=== PATIENT | female | born 1995 | race American Indian/Alaskan Native ===

== ENCOUNTER 2018-05-11 21:42 | Emergency (ER) | payer MEDICAID, OTHER ==
[2018-05-11 23:35] VITALS: BP 118/69
[2018-05-12 00:55] LABS: Basophils % (Auto) 0.4 % (0.0-1.8); Eosinophils % (Auto) 0.3 % (0.0-4.3); Hematocrit 35.9 % (30.3-42.9); Hemoglobin 12.1 gm/dl (10.1-14.3); Lymphocytes # (Auto) 1.2 K/mm3 (1.2-5.4); Lymphocytes % (Auto) 16.9 % (13.4-35.0); Mean Corpuscular HGB Conc 34 % (30-34); Mean Corpuscular Hemoglobin 32 pg (28-32); Mean Corpuscular Volume 96 fl (79-97); Monocytes # (Auto) 0.6 K/mm3 (0.0-0.8); Platelet Count 208 K/mm3 (140-440); Red Blood Count 3.75 M/mm3 (3.65-5.03); Red Cell Distribution Width 12.6 % (13.2-15.2)
[2018-05-12 01:08] LABS: BUN/Creatinine Ratio 30; Blood Urea Nitrogen 12 mg/dL (7-17); Calcium 9.2 mg/dL (8.4-10.2); Hemolysis Index 6
[2018-05-12 01:46] LABS: Bilirubin,Urine NEG (Negative); Blood,Urine NEG (Negative); Color,Urine Yellow (Yellow); Hyaline Casts,Urine 15 /LPF; Mucus,Urine 1+ /HPF
--- NOTE | 2018-05-12 02:06 | Ultrasound Report ---
FINAL REPORT PROCEDURE: US OB < = 14 WEEKS FETUS TECHNIQUE: Real-time transabdominal sonography of the uterus, placenta, amniotic fluid, adnexa, and fetus was performed with image documentation. Measurements were obtained to determine age/size. M-mode Doppler was used to document heartbeat. CPT 73151 HISTORY: Abdominal pain. COMPARISON: No prior studies are available for comparison. FINDINGS: LMP: 02/19/2018. Clinical age: 11 weeks 5 days. EDC: 11/26/2018. CRL: 56.2 mm, which corresponds to a gestational age of: 12 weeks, 1 day. Yolk Sac: Normal. Embryonic Cardiac Activity: 144 beats per minute. Gestational Sac: Normal. Posterior placenta without previa. Amniotic fluid: Normal. Cervix: Normal. Uterus: 11.4 x 8.8 x 9.5 cm Right Ovary: 6.7 x 6.3 x 5.5 cm. 5.3 cm hypoechoic area. Normal flow. Left Ovary: 2.3 x 1.7 x 1.6 cm. Normal flow. Estimated delivery date: 11/23/2018. Uterus and adnexa: Normal. IMPRESSION: Single live intrauterine gestation at approximately 12 weeks 1 day. EDC by US 11/23/2018. Hypoechoic right ovarian lesion likely cyst.
== END 2018-05-11 23:30 | disposition left against medical advice (07) ==
LOC: ED 21:42
DX: R10.30 Lower abdominal pain, unspecified (principal); Z53.21 Procedure and treatment not carried out due to patient leaving prior to being seen by health care provider
CPT/HCPCS: 36415; 76801; 80048; 81001; 84702; 85025

== ENCOUNTER 2018-08-24 14:55 | Outpatient (CLI) | payer MEDICAID ==
[2018-08-24] MEDS ORDERED: LACTATED RINGERS 500 ML IV ONE (15:44)
[2018-08-24] MEDS ORDERED: TYLENOL PO ONE (17:52)
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
[2018-08-24 20:12] VITALS: BP 117/56
== END 2018-08-24 20:31 | disposition home or self-care (01) ==
LOC: TRG 14:55 → LD 16:09 → TRG 20:31
PROVIDERS: ATTEND Obstetrics & Gynecology
DX: O47.02 False labor before 37 completed weeks of gestation, second trimester (principal); Z3A.26 26 weeks gestation of pregnancy
CPT/HCPCS: 59025; 76815; 96360; J7120

== ENCOUNTER 2018-11-15 12:32 | Outpatient (CLI) | payer MEDICAID ==
[2018-11-15] MEDS ORDERED: LACTATED RINGERS 1,000 ML IV SCH (13:00)
[2018-11-15 13:32] LABS: Hematocrit 31.6 % (30.3-42.9); Hemoglobin 10.2 gm/dl (10.1-14.3); Mean Corpuscular HGB Conc 32 % (30-34); Mean Corpuscular Hemoglobin 28 pg (28-32); Mean Corpuscular Volume 87 fl (79-97); Platelet Count 170 K/mm3 (140-440); Red Blood Count 3.63 M/mm3 (3.65-5.03); Red Cell Distribution Width 15.3 % (13.2-15.2)
[2018-11-15 13:52] LABS: Alanine Aminotransferase 8 units/L (7-56); Uric Acid 3.7 mg/dL (3.5-7.6)
[2018-11-15 14:36] VITALS: BP 122/67
[2018-11-15 15:52] LABS: Bacteria,Urine 2+ /HPF (Negative); Bilirubin,Urine NEG (Negative); Blood,Urine LG (Negative); Color,Urine Yellow (Yellow); Protein,Urine <15 mg/dL mg/dL (Negative)
--- NOTE | 2018-11-16 07:58 | Ultrasound Report ---
ULTRASOUND BIOPHYSICAL PROFILE: History: well being Technique: Transabdominal ultrasound with Doppler interrogation. 2 - breathing movements 2 - movements 2 - posture and tone 2 - Qualitative amniotic fluid volume 8 - TOTAL SCORE OF POSSIBLE 8 Heart Rate (bpm) 133
--- NOTE | 2018-11-16 08:01 | Ultrasound Report ---
OB ULTRASOUND History well being. Technique: Transabdominal ultrasound with Doppler interrogation. Gestation: Single Position: Cephalic Amniotic Fluid: Normal RENE = 7.5 cm Heart Rate: 154 BPM BPD: 8.6 cm = 35 w 4 d HC: 31.8 cm = 35 w 6 d AC: 33.1 cm = 37 w 0 d FL: 7.5 cm = 38 w 3 d HC/AC Ratio: 0.96 Cephalic Index: 89.5 Estimated Weight: 3099 grams LMP: 02/19/18 Clinical age = 38 w 3 d EDC: 11/26/18 US Gest. Age = 36 w 5 d EDC: 12/08/18 IMPRESSION: Viable, single intrauterine as described.
== END 2018-11-15 15:35 | disposition home or self-care (01) ==
LOC: TRG 12:32
PROVIDERS: ATTEND Obstetrics & Gynecology
DX: O47.1 False labor at or after 37 completed weeks of gestation (principal); Z3A.38 38 weeks gestation of pregnancy
CPT/HCPCS: 36415; 59025; 76816; 76819; 81001; 82565; 83615; 84450; 84460; 84550; 85027; 86850; 86900; 86901; J7120

== ENCOUNTER 2018-11-15 20:55 | Outpatient (CLI) | payer MEDICAID ==
[2018-11-15 21:42] LABS: Bacteria,Urine 1+ /HPF (Negative); Bilirubin,Urine NEG (Negative); Blood,Urine MOD (Negative); Color,Urine Straw (Yellow); Protein,Urine <15 mg/dL mg/dL (Negative)
[2018-11-15 23:10] VITALS: BP 137/70
[2018-11-15] MEDS ORDERED: VISTARIL PO ONE (23:34)
== END 2018-11-15 23:56 | disposition home or self-care (01) ==
LOC: TRG 20:55
PROVIDERS: ATTEND Obstetrics & Gynecology
DX: O47.1 False labor at or after 37 completed weeks of gestation (principal); Z3A.38 38 weeks gestation of pregnancy
CPT/HCPCS: 59025; 81001; Q0177

== ENCOUNTER 2018-11-16 06:13 | Inpatient (IN) | payer MEDICAID ==
[2018-11-16] MEDS ORDERED: BRETHINE SUB-Q PRN (06:49)
[2018-11-16] MEDS ORDERED: SUBLIMAZE IV PRN (06:49)
[2018-11-16] MEDS ORDERED: XYLOCAINE 2% INFILTRATI ONE (06:49)
--- NOTE | 2018-11-16 06:59 | History and Physical Report ---
History of Present Illness Date of examination: 11/16/18 (labor) History of present illness: EDC Confirmation: 11/26/2018 Gestational Age: 7 1/7 weeks Past History : 2 Term Births: 0 Premature Births: 0 Living Children: 0 Para: 0 Mult. Births: 0 Prev : 0 Aborta: 1 Elect. Ab: 0 Spont. Ab: 1 # 1 Delivery type: SAB Past Medical History: L Ovarian cyst - 8cm Past Surgical History: negative Past Medical History Anesthesia Complications: negative Anemia: negative Autoimmune Disorder: negative Bleeding Disorder: negative Blood Transfusions: negative Breast Disease: negative Diabetes: negative Heart Disease: negative Hypertension: negative Hepatitis/Liver Disease: negative Kidney Disease/UTI: negative Neurologic/Epilepsy/Migraines: negative Phlebitis/Varicosities: negative Psychiatric: negative Pulmonary Disease/Asthma: negative Thyroid Disease: negative Hospitalizations: negative Surgery (Non-horticultural farmer): negative Family Hx: DM - PGM "some kind of CA" - PGF Social Hx: no S/D/E works at [employer] as [employer] Infection History Hx of STD: none HIV Risk Eval: no Hepatitis B Risk Eval: low risk Personal hx. of genital herpes: no Partner hx. of genital herpes: no Rash, Viral, or Febrile illness since last LMP? no Varicella/Chicken Pox Status: Immunized Genetic History Congenital Heart Defect: Mom: no Dad: no Alexis Disease: Mom: no Dad: no Thalassemia Mom: no Dad: no Neural Tube Defect Mom: no Dad: no Down's Syndrome Mom: no Dad: no Jef-Sachs Mom: no Dad: no Sickle Cell Disease/Trait Mom: no Dad: no Hemophilia Mom: no Dad: no Muscular Dystrophy Mom: no Dad: no Cystic Fibrosis Mom: no Dad: no Lita Chorea Mom: no Dad: no Mental Retardation Mom: no Dad: no Fragile X Mom: no Dad: no Other Genetic/Chromosomal Disorder Mom: no Dad: no Child w/other defect Mom: no Dad: no Enviromental Exposures Xray Exposure: no Medication, drug, or alcohol use since LMP: no Chemical/Other Exposure: no Exposure to Cat Liter: no Hx of Parvovirus (Fifth Disease): no Occupational Exposure to Children: none Active Medications (reviewed today): None Current Allergies: No known allergies Past History - Obstetrical History Expected Date of Delivery: 11/26/18 Actual Gestation: 38 Week(s) 4 Day(s) : 2 Para: 0 Hx # Term Pregnancies: 0 Number of Pregnancies: 0 Spontaneous Abortions: 1 Induced : 0 Number of Living Children: 0 Medications and Allergies Allergies Allergy/AdvReac Type Severity Reaction Status Date / Time No Known Allergies Allergy Verified 11/07/18 09:31 Home Medications Medication Instructions Recorded Confirmed Last Taken Type Tablet 1 tab PO DAILY 05/11/18 11/15/18 11/15/18 History Active Meds: Active Medications Ephedrine Sulfate (Ephedrine Sulfate) 10 mg IV Q2M PRN PRN Reason: Hypotension Fentanyl (Sublimaze) 100 mcg IV Q2H PRN PRN Reason: Labor Pain Lactated Ringer's (Lactated Ringers) 1,000 mls @ 125 mls/hr IV DIRECT ANUJA Oxytocin/Sodium Chloride (Pitocin/Ns 20 Unit/1000ml Drip) 20 units in 1,000 mls @ 125 mls/hr IV DIRECT ANUJA Oxytocin/Sodium Chloride (Pitocin/Ns 30 Unit/500ml) 30 units in 500 mls @ 4 mls/hr IV TITR ANUJA; Protocol Lidocaine (Xylocaine 2%) 20 ml INFILTRATI ONCE ONE Stop: 11/16/18 06:50 Mineral Oil (Mineral Oil) 30 ml PO QHS PRN PRN Reason: Constipation Terbutaline Sulfate (Brethine) 0.25 mg SUB-Q ONCE PRN PRN Reason: Hyperstimulation/Hypertonicity - Physical Exam Breasts: Positive: deferred Cardiovascular: Regular rate, Normal S1, Normal S2 Lungs: Positive: Normal air movement Abdomen: Positive: normal appearance, soft, normal bowel sounds. Negative: distention, tenderness Genitourinary (Female): Positive: normal external genitalia, normal perenium Vulva: both: normal Vagina: Positive: normal moisture. Negative: discharge Cervix: Negative: lesion, discharge Uterus: Positive: normal size, normal contour Adnexa: both: normal Anus/Rectum: Positive: normal perianal skin, heme negative. Negative: rectal mass, hemorrhoids Extremities: Positive: normal Deep Tendon Reflex Grade: Normal +2 - Obstetrical FHR: category 1 Uterine Contraction Monitor Mode: External Cervical Dilatation: 4.5 (physical therapist technician) Cervical Effacement Percentage: 90 station: 0 Uterine Contraction Pattern: Regular Uterine Tone Measurement Phase: Resting Uterine Contraction Intensity: Mild Results All other labs normal. GBS NEGATIVE HBsAg Screen Negative Negative *1 RPR Non Reactive Non Reactive *2 Rubella Antibodies, IgG 3.80 index Immune >0.99 *3 Non-immune <0.90 Equivocal 0.90 - 0.99 Immune >0.99 ABO Grouping A *4 Rh Factor Positive *5 Please note: Prior records for this patient's ABO / Rh type are not available for additional verification. Antibody Screen Negative Negative *6 WBC [L] 3.1 x10E3/uL 3.4-10.8 *7 RBC 4.00 x10E6/uL 3.77-5.28 *8 Hemoglobin 12.9 g/dL 11.1-15.9 *9 Hematocrit 37.9 % 34.0-46.6 *10 MCV 95 fL 79-97 *11 MCH 32.3 pg 26.6-33.0 *12 MCHC 34.0 g/dL 31.5-35.7 *13 RDW 13.1 % 12.3-15.4 *14 Platelets 220 x10E3/uL 150-379 *15 Neutrophils 61 % Not Estab. *16 Lymphs 30 % Not Estab. *17 Monocytes 8 % Not Estab. *18 Eos 1 % Not Estab. *19 Basos 0 % Not Estab. *20 ! Immature Cells <No Reported Value> *21 Neutrophils (Absolute) 1.9 x10E3/uL 1.4-7.0 *22 Lymphs (Absolute) 1.0 x10E3/uL 0.7-3.1 *23 Monocytes(Absolute) 0.3 x10E3/uL 0.1-0.9 *24 Eos (Absolute) 0.0 x10E3/uL 0.0-0.4 *25 Baso (Absolute) 0.0 x10E3/uL 0.0-0.2 *26 ! Immature Granulocytes 0 % Not Estab. *27 ! Immature Grans (Abs) 0.0 x10E3/uL 0.0-0.1 *28 ! NRBC <No Reported Value> *29 Hematology Comments: <No Reported Value> *30 Tests: (2) Panel 167702 ([id number]) HIV Screen 4th Generation wRfx Non Reactive Non Reactive *31 Tests: (3) HCV Ab w/Rflx to Verification ([id number]) ! HCV Ab 0.1 s/co ratio 0.0-0.9 *32 Tests: (4) Comment: ([id number]) ! Comment: SPR[facility] *33 Non reactive HCV antibody screen is consistent with no HCV infection, unless recent infection is suspected or other evidence exists to indicate HCV infection. Tests: (5) Urine Culture, Routine ([id number]) Urine Culture, Routine Final report *34 Tests: (6) Result ([id number]) ! Result 1 No growth *35 Assessment and Plan 23yo @ 38 weeks in active labor. GBS negative. Orders in EMR
[2018-11-16] MEDS ORDERED: PITOCin/NS 20 UNIT/1000ML DRIP 20 UNITS/1,000 ML BAG IV SCH ×2 (07:00→18:28)
[2018-11-16] MEDS ORDERED: PITOCin/NS 30 UNIT/500ML 30 UNITS/500 ML BAG IV SCH (07:00)
[2018-11-16 07:22] LABS: Hematocrit 30.2 % (30.3-42.9); Hemoglobin 9.9 gm/dl (10.1-14.3); Mean Corpuscular HGB Conc 33 % (30-34); Mean Corpuscular Hemoglobin 29 pg (28-32); Mean Corpuscular Volume 87 fl (79-97); Platelet Count 145 K/mm3 (140-440); Red Blood Count 3.46 M/mm3 (3.65-5.03); Red Cell Distribution Width 15.2 % (13.2-15.2)
[2018-11-16] MEDS: LACTATED RINGERS 1,000 ML IV SCH ×3 (07:30→12:54)
[2018-11-16] MEDS ORDERED: NARCAN 2 MG/2 ML IV PRN (08:21)
--- NOTE | 2018-11-16 08:21 | Anesthesia Consultation ---
Anesthesia Consult and Med Hx Date of service: 11/16/18 - Airway Anesthetic Teeth Evaluation: Good ROM Head & Neck: Adequate Mental/Hyoid Distance: Adequate Mallampati Class: Class II Intubation Access Assessment: Probably Good - Pre-Operative Health Status ASA Pre-Surgery Classification: ASA2 Proposed Anesthetic Plan: Epidural, Spinal - Pulmonary Hx Asthma: No COPD: No Hx Pneumonia: No - Cardiovascular System Hx Hypertension: No - Central Nervous System Hx Seizures: No Hx Psychiatric Problems: No - Endocrine Hx Renal Disease: No Hx End Stage Renal Disease: No Hx Hypothyroidism: No Hx Hyperthyroidism: No - Hematic Hx Anemia: No Hx Sickle Cell Disease: No - Other Systems Hx Alcohol Use: No
[2018-11-16] MEDS ORDERED: fentaNYL-BUPIV 2 MCG/ML-0.125% 200 MCG/100 ML BAG EPIDURAL SCH (09:00)
[2018-11-16 09:30] LABS: Amphetamine Screen,Urine PRESUMPTIVE NEGATIVE; Benzodiazepines Screen,Urine PRESUMPTIVE NEGATIVE; Cannabinoid Screen,Urine PRESUMPTIVE NEGATIVE; Cocaine Screen,Urine PRESUMPTIVE NEGATIVE; Methadone Screen,Urine PRESUMPTIVE NEGATIVE; Opiate Screen,Urine PRESUMPTIVE NEGATIVE
--- NOTE | 2018-11-16 12:08 | Progress Note ---
Assessment and Plan patient comfortable with epidural, no BOW noted with exam. Patient denies feeling SROM - no fluid noted either. FHT CAT 1. Continue current management, anticipate . - Patient Problems (1) 38 weeks gestation of Current Visit: Yes Status: Acute (2) Active labor Current Visit: Yes Status: Acute Subjective - Subjective Date of service: 11/16/18 Principal diagnosis: IUP @ 38+4 weeks Patient reports: no new complaints (comfortable with epidural) Objective - Vital Signs Vital Signs: Vital Signs - 12hr 11/16/18 11/16/18 11/16/18 06:30 07:19 07:37 Temperature 98.1 F 96.3 F L Pulse Rate 63 Respiratory 18 20 Rate Blood Pressure 122/61 O2 Sat by Pulse Oximetry 11/16/18 11/16/18 11/16/18 08:30 08:35 08:38 Temperature Pulse Rate 73 74 70 Respiratory Rate Blood Pressure 122/68 O2 Sat by Pulse 100 100 Oximetry 11/16/18 11/16/18 11/16/18 08:40 08:42 08:44 Temperature Pulse Rate 74 64 83 Respiratory Rate Blood Pressure 125/70 130/72 137/73 O2 Sat by Pulse 99 Oximetry 11/16/18 11/16/18 11/16/18 08:45 08:46 08:48 Temperature Pulse Rate 77 86 89 Respiratory Rate Blood Pressure 136/71 134/72 O2 Sat by Pulse 100 Oximetry 11/16/18 11/16/18 11/16/18 08:50 08:52 08:54 Temperature Pulse Rate 74 71 70 Respiratory Rate Blood Pressure 131/67 126/69 122/62 O2 Sat by Pulse 100 Oximetry 11/16/18 11/16/18 11/16/18 08:55 08:56 08:58 Temperature Pulse Rate 76 76 68 Respiratory Rate Blood Pressure 128/71 131/69 O2 Sat by Pulse 100 Oximetry 11/16/18 11/16/18 11/16/18 09:01 09:06 09:11 Temperature Pulse Rate 88 76 71 Respiratory Rate Blood Pressure 126/65 O2 Sat by Pulse 100 100 100 Oximetry 11/16/18 11/16/18 11/16/18 09:14 09:16 09:31 Temperature Pulse Rate 67 96 H Respiratory Rate Blood Pressure 118/60 122/59 O2 Sat by Pulse 67 L Oximetry 1211/16/18 11/16/18 09:41 09:47 09:52 Temperature Pulse Rate 80 72 69 Respiratory Rate Blood Pressure 118/59 O2 Sat by Pulse 100 100 100 Oximetry 11/16/18 11/16/18 11/16/18 09:57 10:01 10:02 Temperature Pulse Rate 75 65 75 Respiratory Rate Blood Pressure 108/59 O2 Sat by Pulse 100 99 Oximetry 11/16/18 11/16/18 11/16/18 10:07 10:13 10:16 Temperature Pulse Rate 76 94 H 80 Respiratory Rate Blood Pressure 113/63 O2 Sat by Pulse 99 94 Oximetry 11/16/18 11/16/18 11/16/18 10:18 10:22 10:23 Temperature Pulse Rate 73 95 H 91 H Respiratory Rate Blood Pressure O2 Sat by Pulse 99 94 100 Oximetry 11/16/18 11/16/18 11/16/18 10:28 10:30 10:31 Temperature Pulse Rate 82 85 82 Respiratory Rate Blood Pressure 119/64 O2 Sat by Pulse 100 93 Oximetry 11/16/18 11/16/18 11/16/18 10:33 10:38 10:43 Temperature Pulse Rate 83 73 77 Respiratory Rate Blood Pressure O2 Sat by Pulse 100 100 100 Oximetry 11/16/18 11/16/18 11/16/18 10:46 10:48 10:53 Temperature Pulse Rate 71 89 81 Respiratory Rate Blood Pressure 122/74 O2 Sat by Pulse 98 100 Oximetry 11/16/18 11/16/18 11/16/18 10:58 11:01 11:03 Temperature Pulse Rate 77 71 70 Respiratory Rate Blood Pressure 121/62 O2 Sat by Pulse 100 100 Oximetry 11/16/18 11/16/18 11/16/18 11:08 11:13 11:17 Temperature Pulse Rate 71 72 69 Respiratory Rate Blood Pressure 128/66 O2 Sat by Pulse 100 99 Oximetry 11/16/18 11/16/18 11/16/18 11:18 11:23 11:28 Temperature Pulse Rate 71 70 70 Respiratory Rate Blood Pressure O2 Sat by Pulse 99 100 100 Oximetry 11/16/18 11/16/18 11/16/18 11:31 11:32 11:33 Temperature Pulse Rate 80 89 75 Respiratory Rate Blood Pressure 136/64 O2 Sat by Pulse 92 100 Oximetry 11/16/18 11/16/18 11/16/18 11:38 11:43 11:44 Temperature Pulse Rate 80 86 87 Respiratory Rate Blood Pressure O2 Sat by Pulse 100 95 94 Oximetry 11/16/18 11/16/18 11/16/18 11:46 11:48 11:53 Temperature Pulse Rate 84 79 77 Respiratory Rate Blood Pressure 146/65 O2 Sat by Pulse 100 100 Oximetry 11/16/18 11/16/18 11/16/18 11:57 11:58 12:01 Temperature Pulse Rate 82 74 74 Respiratory Rate Blood Pressure 119/67 O2 Sat by Pulse 92 98 Oximetry 11/16/18 12:03 Temperature Pulse Rate 91 H Respiratory Rate Blood Pressure O2 Sat by Pulse 100 Oximetry - Exam Breasts: normal Cardiovascular: Regular rate Lungs: Clear to auscultation, Normal air movement Abdomen: Present: normal appearance, soft Vulva: both: normal Uterus: Present: normal FHR: category 1 Uterine Contraction Monitor Mode: External Cervical Dilatation: 8 Cervical Effacement Percentage: 90 station: +1 Uterine Contraction Frequency (min): 1.5-2 Uterine Contraction Duration: 60 Uterine Contraction Pattern: Regular Uterine Tone Measurement Phase: Contraction Uterine Contraction Intensity: Moderate Extremities: normal - Labs Labs: Abnormal Labs 11/16/18 07:05 RBC 3.46 L Hgb 9.9 L Hct 30.2 L Laboratory Results - last 24 hr 11/16/18 11/16/18 11/16/18 07:05 07:05 08:50 WBC 6.7 RBC 3.46 L Hgb 9.9 L Hct 30.2 L MCV 87 MCH 29 MCHC 33 RDW 15.2 Plt Count 145 Urine Opiates Screen Presumptive negative Urine Methadone Screen Presumptive negative Ur Barbiturates Screen Presumptive negative Ur Phencyclidine Scrn Presumptive negative Ur Amphetamines Screen Presumptive negative U Benzodiazepines Scrn Presumptive negative Urine Cocaine Screen Presumptive negative U Marijuana (THC) Screen Presumptive negative Drugs of Abuse Note Disclamer Blood Type A POSITIVE Antibody Screen Negative
[2018-11-16] MEDS ORDERED: MINERAL OIL ONE ×2 (13:48→14:17)
[2018-11-16] MEDS ORDERED: METHERGINE IM ONE ×2 (14:31→14:35)
--- NOTE | 2018-11-16 15:58 | Procedure Note ---
OB Delivery Note - Delivery Date of Delivery: 11/16/18 Surgeon: LINH HARDIN Estimated blood loss: other (450ml) - Vaginal Delivery position: OP (direct with shoulder delivering transverse w/o difficulty) Delivery induction: oxytocin Delivery augmentation: pitocin Delivery monitor: external FHT, external uterine Route of delivery: Delivery placenta: spontaneous (intact uterine sweep did not reveal any retained placental tissue) Delivery cord: 3 umbilical vessels Episiotomy: midline Delivery laceration: 4th degree (just thouth the rectal mucosa partially) Delivery repair: vicryl (3-0 and 2.0) Anesthesia: epidural Delivery comments: Delivery as above. Infant delivered in direct OP presentation after about 1.5hrs of pushing. The anterior shoulder and rest of infant delivered without any difficulty. There was no nuchal cord. There was no shoulder dystocia. Infant was taken to [place] warm to waiting nursing staff. The cord clamped 2 and cut 1. The uterus up toward was called to the delivery due to infant appearing stunned after delivery. Patient did have a midline episiotomy that extended to a partial fourth degree laceration with delivery of the infant. This was repaired in usual fashion in layers using 2-0 Vicryl to secure reapproximate the rectal mucosa in interrupted sutures care was taken the sutures did not protrude through the rectum. 3-0 Vicryl was then used to reapproximate the rectal muscles. Finally 3-0 Vicryl was used to complete repair of the second- degree laceration and normal usual fashion. Patient tolerated procedure well minimal bleeding was noted. Sponge lap and needle counts were all correct. EBL was 450 mL. Mother and infant was stable in LDR. - A at 1 minute: 6 at 5 minutes: 8 Gender: Female (9lbs 3oz)
[2018-11-16] MEDS ORDERED: BENADRYL PO PRN (18:28)
[2018-11-16] MEDS ORDERED: DULCOLAX PR PRN (18:28)
[2018-11-16] MEDS ORDERED: PERCOCET 5/325 PO PRN (18:28)
[2018-11-16] MEDS ORDERED: MILK OF MAGNESIA PO PRN (18:28)
[2018-11-16] MEDS ORDERED: LANSINOH TP PRN (18:28)
[2018-11-16] MEDS ORDERED: SODIUM CHLORIDE FLUSH SYRINGE 10 ML IV NR (18:28)
[2018-11-16] MEDS ORDERED: DERMOPLAST TP PRN (18:28)
[2018-11-16] MEDS ORDERED: TUCKS PAD TP PRN (18:28)
[2018-11-16] MEDS ORDERED: PHENERGAN PR PRN (18:28)
[2018-11-16] MEDS ORDERED: PHENERGAN PO PRN (18:28)
[2018-11-16] MEDS ORDERED: TORADOL IV PRN (18:28)
[2018-11-16] MEDS ORDERED: ZOFRAN IV PRN (18:28)
[2018-11-16] MEDS ORDERED: TYLENOL PO PRN (18:28)
[2018-11-16] MEDS: MOTRIN PO SCH ×2 (18:48→23:36)
[2018-11-16] MEDS: FEOSOL PO SCH (21:50)
[2018-11-16] MEDS: COLACE PO SCH (21:50)
[2018-11-16] MEDS ORDERED: MINERAL OIL PO PRN (22:00)
[2018-11-17 04:27] LABS: Hematocrit 24.6 % (30.3-42.9); Hemoglobin 7.7 gm/dl (10.1-14.3)
[2018-11-17] MEDS: MOTRIN PO SCH ×4 (05:30→23:12)
[2018-11-17] MEDS ORDERED: BOOSTRIX IM ONE (06:00)
--- NOTE | 2018-11-17 08:54 | Progress Note ---
Assessment and Plan - Patient Problems (1) Delivery normal Current Visit: Yes Status: Acute (2) Fourth degree laceration of perineum, delivered, current hospitalization Current Visit: Yes Status: Acute (3) Anemia Current Visit: Yes Status: Acute Qualifiers: Other causes of anemia: acute posthemorrhagic Plan to address problem: asymptomatic, will start Fe and colace Anticipate D/c home tomorrow Subjective - Subjective Date of service: 11/17/18 Principal diagnosis: PPD#1 , 4th degree laceration Interval history: Restin gin bed, no complaints, minimal bleeding, feels much better Patient reports: appetite normal, voiding normally, pain well controlled, ambulating normally Objective - Vital Signs Latest vital signs: Vital Signs Temp Pulse Resp BP BP Pulse Ox 11/17/18 07:28 98.3 F 18 112/61 11/17/18 00:58 98.7 F 88 18 104/52 98 11/16/18 21:51 99 F 96 H 18 125/73 11/16/18 16:43 98.9 F 79 100 11/16/18 16:15 94 H 135/63 11/16/18 16:01 90 139/61 11/16/18 15:46 92 H 128/60 11/16/18 15:31 93 H 116/63 11/16/18 15:15 77 117/75 11/16/18 15:04 91 H 118/63 11/16/18 14:45 97 H 111/59 11/16/18 14:38 90 110/55 11/16/18 14:31 74 86/42 53 L 11/16/18 14:27 105 H 100 11/16/18 14:23 58 L 81 L 11/16/18 14:22 86 100 11/16/18 14:17 133 H 98 11/16/18 14:16 104 H 125/59 11/16/18 13:47 120 H 126/58 11/16/18 13:43 56 L 71 L 11/16/18 13:41 133 H 69 L 11/16/18 13:38 89 100 11/16/18 13:36 93 H 87 11/16/18 13:33 94 H 100 11/16/18 13:31 98 H 111/56 11/16/18 13:29 113 H 88 11/16/18 13:28 86 100 11/16/18 13:23 121 H 100 11/16/18 13:18 113 H 100 11/16/18 13:17 116 H 141/85 11/16/18 13:13 108 H 99 11/16/18 13:08 78 99 11/16/18 13:03 78 99 11/16/18 13:01 75 118/61 11/16/18 12:58 73 100 11/16/18 12:53 81 100 11/16/18 12:48 96 H 113/70 99 11/16/18 12:43 93 H 100 11/16/18 12:40 99 H 86 11/16/18 12:38 86 100 11/16/18 12:34 87 91 11/16/18 12:33 92 H 99 11/16/18 12:31 104 H 126/77 11/16/18 12:28 98 H 93 11/16/18 12:23 108 H 100 11/16/18 12:18 97 H 100 11/16/18 12:16 85 122/69 11/16/18 12:13 84 100 11/16/18 12:08 100 H 100 11/16/18 12:03 91 H 100 11/16/18 12:01 74 119/67 11/16/18 11:58 74 98 11/16/18 11:57 82 92 11/16/18 11:53 77 100 11/16/18 11:48 79 100 11/16/18 11:46 84 146/65 11/16/18 11:44 87 94 11/16/18 11:43 86 95 11/16/18 11:38 80 100 11/16/18 11:33 75 100 11/16/18 11:32 89 136/64 11/16/18 11:31 80 92 11/16/18 11:28 70 100 11/16/18 11:23 70 100 11/16/18 11:18 71 99 11/16/18 11:17 69 128/66 11/16/18 11:13 72 99 11/16/18 11:08 71 100 11/16/18 11:03 70 100 11/16/18 11:01 71 121/62 11/16/18 10:58 77 100 11/16/18 10:53 81 100 11/16/18 10:48 89 98 11/16/18 10:46 71 122/74 12/28/18 10:43 77 100 11/16/18 10:38 73 100 11/16/18 10:33 83 100 11/16/18 10:31 82 119/64 11/16/18 10:30 85 93 11/16/18 10:28 82 100 11/16/18 10:23 91 H 100 11/16/18 10:22 95 H 94 11/16/18 10:18 73 99 11/16/18 10:16 80 113/63 11/16/18 10:13 94 H 94 11/16/18 10:07 76 99 11/16/18 10:02 75 99 11/16/18 10:01 65 108/59 11/16/18 09:57 75 100 11/16/18 09:52 69 100 11/16/18 09:47 72 118/59 100 11/16/18 09:41 80 100 11/16/18 09:31 96 H 122/59 11/16/18 09:16 67 118/60 11/16/18 09:14 67 L 11/16/18 09:11 71 100 11/16/18 09:06 76 100 11/16/18 09:01 88 126/65 100 11/16/18 08:58 68 131/69 11/16/18 08:56 76 128/71 11/16/18 08:55 76 100 11/16/18 08:54 70 122/62 Intake and Output 11/16/18 11/17/18 11/17/18 22:59 06:59 14:59 Intake Total 480 Output Total 100 700 Balance -100 -220 Intake: Intake, Free Water 480 Output: Urine 100 700 Void 100 700 Other: Total, Output Amount 100 500 # Voids Void 1 - Exam Breasts: Present: normal. Absent: pain, engorged Lungs: Present: Normal air movement Abdomen: Present: normal appearance, soft. Absent: distention, tenderness Vulva: both: normal (no swelling, no s/s infection) Uterus: Present: fundal height below umbilicus. Absent: tenderness Extremities: Present: normal. Absent: tenderness, edema - Labs Labs: Abnormal lab results 11/17/18 Range/Units 04:06 Hgb 7.7 L (10.1-14.3) gm/dl Hct 24.6 L (30.3-42.9) %
[2018-11-17] MEDS: PRENATAL VITAMIN PO SCH (10:05)
[2018-11-17] MEDS: FEOSOL PO SCH ×2 (10:05→21:16)
[2018-11-17] MEDS: COLACE PO SCH ×2 (10:06→21:16)
[2018-11-18] MEDS: MOTRIN PO SCH (05:28)
--- NOTE | 2018-11-18 08:41 | Discharge Summary ---
Providers - Providers Date of Admission: 11/16/18 07:31 Date of discharge: 11/18/18 Attending physician: KEVEN HECK Primary care physician: KEVEN HECK Hospitalization Reason for admission: active labor Delivery: Episiotomy: midline Laceration: 4th degree Incision: normal (no edema or erythema. no s/s infection), intact Other procedures: none complications: none Discharge diagnosis: IUP at term delivered baby: female Hospital course: No complaints, minimal bleeding, desires d/c home Breasts: Present: normal Lungs: Present: Normal air movement Abdomen: Present: normal appearance, soft, other (obese). Absent: distention Uterus: Present:below umbilicus NT Extremities: Present: normal Condition at discharge: Good Disposition: DC-01 TO HOME OR SELFCARE - Discharge Diagnoses (1) Delivery normal Status: Acute (2) Fourth degree laceration of perineum, delivered, current hospitalization Status: Acute (3) Anemia Status: Acute Qualifiers: Other causes of anemia: acute posthemorrhagic Comment: Asymptomatic She denies lightheadedness or dizziness with ambulation Plan - Discharge Medications Prescriptions: Docusate Sodium [Colace] 100 mg PO BID PRN #60 capsule PRN Reason: Constipation RX: Ibuprofen 800 mg PO Q6HR #30 tablet - Provider Discharge Summary Activity: routine, no sex for 6 weeks, no heavy lifting 4 weeks, no strenuous exercise Diet: routine Instructions: routine Additional instructions: [] Smoking cessation referral if applicable(refer to patient education folder for contact #) [] Refer to [facility] Booklet Call your doctor immediately for: * Fever > 100.5 * Heavy vaginal bleeding ( >1 pad per hour) * Severe persistent headache * Shortness of breath * Reddened, hot, painful area to leg or breast * Drainage or odor from incision. * Keep incision clean and dry at all times and follow doctor's instructions regarding bathing/showering - Follow up plan Follow up: KEVEN HECK MD [Primary Care Provider] - 6 Weeks
[2018-11-18] MEDS ORDERED: DEPO-PROVERA (CONTRACEPTION) IM ONE (09:18)
[2018-11-18] MEDS: COLACE PO SCH (10:09)
[2018-11-18] MEDS: FEOSOL PO SCH (10:09)
[2018-11-18] MEDS: PRENATAL VITAMIN PO SCH (10:09)
[2018-11-18 10:33] VITALS: BP 123/69
== END 2018-11-18 11:30 | disposition home or self-care (01) | DRG 775 ==
LOC: TRG 06:13 → LD 07:31 → OB 16:56
PROVIDERS: ADMIT Obstetrics & Gynecology; ATTEND Obstetrics & Gynecology
PROC: 10E0XZZ Delivery of Products of Conception, External Approach (ICD-10-PCS; principal; 2018-11-16)
PROC: 0DQP0ZZ Repair Rectum, Open Approach (ICD-10-PCS; 2018-11-16)
PROC: 3E033VJ Introduction of Other Hormone into Peripheral Vein, Percutaneous Approach (ICD-10-PCS; 2018-11-16)
PROC: 0W8NXZZ Division of Female Perineum, External Approach (ICD-10-PCS; 2018-11-16)
PROC: 3E0R3BZ Introduction of Anesthetic Agent into Spinal Canal, Percutaneous Approach (ICD-10-PCS; 2018-11-16)
PROC: 00HU33Z Insertion of Infusion Device into Spinal Canal, Percutaneous Approach (ICD-10-PCS; 2018-11-16)
DX: O70.3 Fourth degree perineal laceration during delivery (principal); Z37.0 Single live birth; O90.81 Anemia of the puerperium; D62 Acute posthemorrhagic anemia; Z3A.38 38 weeks gestation of pregnancy
CPT/HCPCS: 36415; 80307; 85014; 85018; 85027; 86592; 86850; 86900; 86901; 88307; 90715; G0378; J1050; J2210; J2590; J3010; J7120